=== PATIENT | female | born 1975 | race Hispanic/Latino ===

== ENCOUNTER 2018-08-12 23:24 | Emergency (ER) | payer SELFPAY ==
[2018-08-12] MEDS ORDERED: IBUPROFEN 400 MG TABLET ONE (23:42)
[2018-08-12] MEDS ORDERED: IBUPROFEN 200 MG TAB ONE (23:42)
[2018-08-13] MEDS ORDERED: HYDROCODONE/ACETAMINOPHEN 5/325 MG TAB ONE (00:14)
== END 2018-08-13 00:36 | disposition home or self-care (01) ==
LOC: EDH 23:24
DX: S59.092A Other physeal fracture of lower end of ulna, left arm, initial encounter for closed fracture (principal); W18.39XA Other fall on same level, initial encounter; Y93.01 Activity, walking, marching and hiking; Y92.89 Other specified places as the place of occurrence of the external cause; Y99.8 Other external cause status
CPT/HCPCS: 29125; 73110